=== PATIENT | male | born 1980 | race Caucasian/White ===

== ENCOUNTER 2018-06-11 05:19 | Emergency (ER) | payer OTHER ==
[~2018-06-11] VITALS: Ht 180.3 cm; Wt 99.8 kg
[2018-06-11] MEDS ORDERED: PEPCID40 MG PO (08:08)
[2018-06-11] MEDS ORDERED: BENADRYL25 MG PO (08:08)
[2018-06-11] MEDS ORDERED: MEDROL8 MG PO (08:08)
== END 2018-06-11 09:06 | disposition home or self-care (01) ==
LOC: ER 05:19
DX: L50.8 Other urticaria (principal)

== ENCOUNTER 2021-07-06 12:51 | Emergency (ER) | payer OTHER ==
[~2021-07-06] VITALS: Ht 182.9 cm; Wt 109.8 kg
[~2021-07-06 12:51] MED LIST: BENADRYL25 MG PO; MEDROL8 MG PO; PEPCID40 MG PO
[2021-07-06] MEDS ORDERED: PEPCID AC10 MG PO (13:07)
[2021-07-06] MEDS ORDERED: BENADRYL25 MG (13:07)
[2021-07-06] MEDS ORDERED: ZESTRIL2.5 MG PO (13:08)
== END 2021-07-06 13:30 | disposition home or self-care (01) ==
LOC: ER 12:51
DX: J32.1 Chronic frontal sinusitis (principal); N39.0 Urinary tract infection, site not specified

== ENCOUNTER 2021-07-10 06:22 | Emergency (ER) | payer OTHER ==
[~2021-07-10] VITALS: Ht 182.9 cm; Wt 108.9 kg
[~2021-07-10 06:22] MED LIST changes: +BENADRYL25 MG; +PEPCID AC10 MG PO; +ZESTRIL2.5 MG PO
[2021-07-10] MEDS ORDERED: ZESTRIL20 MG (06:42)
== END 2021-07-10 11:34 ==
LOC: ER 06:22
DX: R51.9 Headache, unspecified (principal); N39.0 Urinary tract infection, site not specified; M54.2 Cervicalgia; Z03.818 Encounter for observation for suspected exposure to other biological agents ruled out; I10 Essential (primary) hypertension

== ENCOUNTER 2021-09-22 16:54 | Emergency (ER) | payer OTHER ==
[~2021-09-22] VITALS: Ht 182.9 cm; Wt 116.6 kg
[~2021-09-22 16:54] MED LIST changes: +ZESTRIL20 MG
== END 2021-09-23 | disposition home or self-care (01) ==
LOC: ER 16:54
DX: R05.9 Cough, unspecified (principal); Z03.818 Encounter for observation for suspected exposure to other biological agents ruled out

== ENCOUNTER 2021-11-07 23:57 | Emergency (ER) | payer OTHER ==
[~2021-11-07] VITALS: Ht 182.9 cm; Wt 116.6 kg
[2021-11-08] MEDS ORDERED: LEVSIN/SL0.125 MG SL (04:02)
== END 2021-11-08 04:27 ==
LOC: ER 23:57
DX: R00.2 Palpitations (principal); J45.998 Other asthma; I10 Essential (primary) hypertension

== ENCOUNTER 2022-04-05 14:15 | Emergency (ER) | payer OTHER ==
[~2022-04-05] VITALS: Ht 180.3 cm; Wt 99.8 kg
[~2022-04-05 14:15] MED LIST changes: +LEVSIN/SL0.125 MG SL
== END 2022-04-05 18:10 | disposition home or self-care (01) ==
LOC: ER 14:15
DX: N39.0 Urinary tract infection, site not specified (principal); M54.59 Other low back pain; Z91.013 Allergy to seafood

== ENCOUNTER 2022-08-04 11:51 | Emergency (ER) | payer OTHER ==
[~2022-08-04] VITALS: Ht 177.8 cm; Wt 104.3 kg
[2022-08-04] MEDS ORDERED: ZESTRIL10 M1 PO (12:18)
== END 2022-08-04 13:50 | disposition home or self-care (01) ==
LOC: ER 11:51
DX: H66.90 Otitis media, unspecified, unspecified ear (principal); Z91.013 Allergy to seafood

== ENCOUNTER 2022-08-12 22:08 | Emergency (ER) | payer OTHER ==
[~2022-08-12] VITALS: Ht 182.9 cm; Wt 106.6 kg
[~2022-08-12 22:08] MED LIST changes: +ZESTRIL10 M1 PO
[2022-08-12] MEDS ORDERED: LOSARTAN POTASS50 MG PO (22:21)
[2022-08-12] MEDS ORDERED: NORVASC2.5 M1 PO (22:22)
== END 2022-08-13 00:34 | disposition home or self-care (01) ==
LOC: ER 22:08
DX: R51.9 Headache, unspecified (principal); T43.615A Adverse effect of caffeine, initial encounter; Z91.013 Allergy to seafood

== ENCOUNTER 2022-10-16 09:58 | Emergency (ER) | payer OTHER ==
[~2022-10-16] VITALS: Ht 182.9 cm; Wt 115.2 kg
[~2022-10-16 09:58] MED LIST changes: +LOSARTAN POTASS50 MG PO; +NORVASC2.5 M1 PO
== END 2022-10-16 12:29 | disposition home or self-care (01) ==
LOC: ER 09:58
DX: H61.22 Impacted cerumen, left ear (principal); R42 Dizziness and giddiness; Z91.013 Allergy to seafood

== ENCOUNTER 2022-11-15 19:01 | Emergency (ER) | payer OTHER ==
[~2022-11-15] VITALS: Ht 180.3 cm; Wt 113.4 kg
== END 2022-11-15 19:43 | disposition home or self-care (01) ==
LOC: ER 19:01
DX: M54.50 Low back pain, unspecified (principal); Z91.013 Allergy to seafood

== ENCOUNTER 2022-11-18 15:31 | Emergency (ER) | payer OTHER ==
[~2022-11-18] VITALS: Ht 182.9 cm; Wt 113.4 kg
[2022-11-18] MEDS ORDERED: NAPROXEN500 MG PO (16:56)
[2022-11-18] MEDS ORDERED: ZANAFLEX4 MG PO (16:56)
== END 2022-11-18 17:29 | disposition home or self-care (01) ==
LOC: ER 15:31
DX: M54.50 Low back pain, unspecified (principal); I10 Essential (primary) hypertension; Z91.013 Allergy to seafood

== ENCOUNTER 2022-12-02 14:01 | Emergency (ER) | payer OTHER ==
[~2022-12-02] VITALS: Ht 180.3 cm; Wt 117.9 kg
[~2022-12-02 14:01] MED LIST changes: +NAPROXEN500 MG PO; +ZANAFLEX4 MG PO
[2022-12-02] MEDS ORDERED: EPIPEN0.3 MG/0.1 IJ (19:14)
== END 2022-12-02 20:11 | disposition home or self-care (01) ==
LOC: ER 14:01
DX: J02.9 Acute pharyngitis, unspecified (principal); Z91.013 Allergy to seafood

== ENCOUNTER 2023-02-16 12:53 | Emergency (ER) | payer OTHER ==
[~2023-02-16] VITALS: Ht 180.3 cm; Wt 104.3 kg
[~2023-02-16 12:53] MED LIST changes: +EPIPEN0.3 MG/0.1 IJ
== END 2023-02-16 15:27 | disposition home or self-care (01) ==
LOC: ER 12:53
DX: R05.8 Other specified cough (principal); F17.210 Nicotine dependence, cigarettes, uncomplicated; Z91.013 Allergy to seafood

== ENCOUNTER → 2023-04-10 | Emergency (ER) | payer OTHER ==
[~2023-04-10] VITALS: Ht 182.9 cm; Wt 104.3 kg
== END | disposition designated cancer center or children's hospital (05) ==
LOC: ER 15:52
DX: R45.851 Suicidal ideations (principal); F32.89 Other specified depressive episodes; R05.9 Cough, unspecified; Z20.822 Contact with and (suspected) exposure to COVID-19; Z91.013 Allergy to seafood

== ENCOUNTER 2023-05-01 22:45 | Emergency (ER) | payer OTHER ==
[~2023-05-01] VITALS: Ht 182.9 cm; Wt 104.3 kg
[2023-05-01] MEDS ORDERED: NORVASC2.5 M1 PO (23:07)
[2023-05-01] MEDS ORDERED: COZAAR25 MG PO (23:07)
== END 2023-05-02 03:27 | disposition home or self-care (01) ==
LOC: ER 22:45
DX: J06.9 Acute upper respiratory infection, unspecified (principal); J45.909 Unspecified asthma, uncomplicated; Z91.013 Allergy to seafood

== ENCOUNTER 2023-08-15 08:03 | Emergency (ER) | payer OTHER ==
[~2023-08-15] VITALS: Ht 182.9 cm; Wt 98.9 kg
[~2023-08-15 08:03] MED LIST changes: +COZAAR25 MG PO
[2023-08-15 09:52] LABS: HEMATOCRIT 49.6 % (39.0-48.0); HEMOGLOBIN 17.1 g/dL (13-16.00); MEAN CORPUSCULAR HEMOGLOBIN 31.8 pg (27.00-32.0); MEAN CORPUSCULAR HGB CONC 34.5 g/dl (32.0-36.0); PLATELET COUNT 290 K/uL (150-450); RED BLOOD COUNT 5.39 M/uL (4.00-6.00); RED CELL DISTRIBUTION WIDTH 13.5 % (11.5-14.5)
[2023-08-15 10:44] LABS: CALCIUM 9.1 mg/dL (8.5-10.1); CREATININE SERUM 1.34 mg/dL (0.70-1.30); GFR 58.74; POTASSIUM 3.27 mEq/L (3.5-5.1)
[2023-08-15 14:31] LABS: HEMATOCRIT 47.8 % (39.0-48.0); MEAN CELL VOLUME 92.7 fL (80.0-100.00); MEAN CORPUSCULAR HGB CONC 33.5 g/dl (32.0-36.0); PLATELET COUNT 252 K/uL (150-450); RED BLOOD COUNT 5.16 M/uL (4.00-6.00); RED CELL DISTRIBUTION WIDTH 12.9 % (11.5-14.5)
== END 2023-08-15 15:53 | disposition home or self-care (01) ==
LOC: ER 08:04
PROVIDERS: Emergency Medicine
DX: K52.9 Noninfective gastroenteritis and colitis, unspecified (principal); I10 Essential (primary) hypertension; Z87.09 Personal history of other diseases of the respiratory system; Z91.013 Allergy to seafood

== ENCOUNTER → 2024-01-12 | Emergency (ER) | payer OTHER ==
[~2024-01-12] VITALS: Ht 182.9 cm; Wt 96.2 kg
[~2024-01-12] MED LIST changes: +COZAAR50 MG PO; +DEXAMETHASONE SODIUM PHOSPHATE 4 MG/ML VIAL IM STA
== END | disposition left against medical advice (07) ==
LOC: ER 11:29
DX: J02.9 Acute pharyngitis, unspecified (principal); I10 Essential (primary) hypertension; Z91.013 Allergy to seafood; Z20.822 Contact with and (suspected) exposure to COVID-19

== ENCOUNTER → 2024-07-24 | Emergency (ER) | payer OTHER ==
[~2024-07-24] VITALS: Ht 180.3 cm; Wt 99.8 kg
[~2024-07-24] MED LIST changes: +ADDERALL 20 MG20 MG PO; +CELEXA20 MG PO; +KETOROLAC TROMETHAMINE 30 MG VIAL IM STA; +NORVASC2.5 MG PO; +ORPHENADRINE CITRATE 30 MG/ML AMPUL IM STA; +amlodipine
[2024-07-24 14:02] VITALS: BP 134/89; O2SAT 100
== END | disposition left against medical advice (07) ==
LOC: ER 13:43
DX: M25.562 Pain in left knee (principal); M17.12 Unilateral primary osteoarthritis, left knee; Z91.013 Allergy to seafood

== ENCOUNTER 2024-08-13 09:10 | Emergency (ER) | payer OTHER ==
[~2024-08-13] VITALS: Ht 182.9 cm; Wt 104.3 kg
[~2024-08-13 09:10] MED LIST changes: -DEXAMETHASONE SODIUM PHOSPHATE 4 MG/ML VIAL IM STA; -KETOROLAC TROMETHAMINE 30 MG VIAL IM STA; -ORPHENADRINE CITRATE 30 MG/ML AMPUL IM STA
[2024-08-13] MEDS ORDERED: KETOROLAC TROMETHAMINE 60 MG VIAL IM STA (11:04)
== END 2024-08-13 11:17 | disposition home or self-care (01) ==
LOC: ER 09:12
DX: M94.0 Chondrocostal junction syndrome [Tietze] (principal); Z91.013 Allergy to seafood
CPT/HCPCS: 96372; 99282; J1885